=== PATIENT | female | born 1960 | race Caucasian/White ===

== ENCOUNTER 2017-07-24 15:05 | Emergency (ER) | payer MEDICARE, OTHER ==
[2017-07-24 15:47] VITALS: BP 146/66
--- NOTE | 2017-07-24 15:47 | UC ---
Back Pain HPI - HPI Summary HPI Summary: 57 YEAR OLD FEMALE PRESENTS WITH COMPLAINS LEFT HIP PAIN, NECK PAIN AND RIGHT ELBOW PAIN SECONDARY TO A FALL. - History of Current Complaint Chief Complaint: UCBackPain Stated Complaint: BACK COMPLAINT Time Seen by Provider: 07/24/17 15:46 Hx Obtained From: Patient Onset/Duration: Sudden Onset Timing: Constant Severity Initially: Moderate Severity Currently: Moderate Pain Scale Used: 0-10 Numeric - 5 Character: Sharp Aggravating: Movement Associated Signs And Symptoms: Positive: Negative - Allergies/Home Medications Allergies/Adverse Reactions: Allergies Allergy/AdvReac Type Severity Reaction Status Date / Time Penicillins Allergy Severe See Comment Verified 07/24/17 15:43 Yeast Allergy Mild Heartburn Verified 07/24/17 15:43 Home Medications: Home Medications Mirabegron (NF) [Myrbetriq (NF)] 50 mg PO DAILY 07/24/17 [History Confirmed ] Omeprazole CAP* [Prilosec CAP* 20 MG] 20 mg PO DAILY 07/24/17 [History Confirmed 07/24/17] PMH/Surg Hx/FS Hx/Imm Hx Previously Healthy: Yes - Surgical History Surgical History: Yes Surgery Procedure, Year, and Place: Left Knee Partial Replacement 2014. 2010 RT HIP REPLACEMENT. 2012 RT HIP REVISION. 1987 LT BUNIONECTOMY - Family History Known Family History: Positive: Diabetes - Social History Alcohol Use: Rare Substance Use Type: None Smoking Status (MU): Never Smoked Tobacco - Immunization History Most Recent Influenza Vaccination: none Review of Systems Constitutional: Negative Skin: Negative Eyes: Negative ENT: Negative Respiratory: Negative Cardiovascular: Negative Gastrointestinal: Negative Genitourinary: Negative Motor: Negative Neurovascular: Negative Musculoskeletal: Myalgia, Other: - NECK PAIN LEFT HIP PAIN RIGHT ELBOW PAIN Neurological: Negative Psychological: Negative All Other Systems Reviewed And Are Negative: Yes Physical Exam Triage Information Reviewed: Yes Vital Signs: Initial Vital Signs Temp 36.8 C 07/24/17 15:37 Pulse 66 07/24/17 15:37 Resp 16 07/24/17 15:37 BP 146/66 07/24/17 15:37 Pulse Ox 98 07/24/17 15:37 Vital Signs Reviewed: Yes Eye Exam: Normal ENT Exam: Normal Dental Exam: Normal Neck exam: Normal Neck: Positive: 1 Respiratory Exam: Normal Cardiovascular Exam: Normal Abdominal Exam: Normal Musculoskeletal: Positive: Other: - LEFT HIP PAIN NECK PAIN RIGHT HIP PAIN Neurological Exam: Normal Psychological Exam: Normal Skin Exam: Normal Back Pain Course/Dx - Differential Dx/Diagnosis Provider Diagnoses: LEFT HIP PAIN. NECK STRAIN. RIGHT ELBOW PAIN Discharge - Discharge Plan Condition: Stable Disposition: HOME Prescriptions: Meloxicam [Mobic] 7.5 mg PO BID #30 tab Methocarbamol TAB* [Robaxin 500 MG TAB*] 500 mg PO TID PRN #30 tab PRN Reason: Spasms - Back Patient Education Materials: Low Back Strain (ED), Cervical Sprain (ED), Hip Pain (ED) Referrals: Herberth Daniels MD [Medical Doctor] - Damian Rodriguez MD [Primary Care Provider] -
--- NOTE | 2017-07-24 16:33 | RAD ---
INDICATION: Neck pain. Fall. COMPARISON: Cervical spine 2015 TECHNIQUE: Routine five-view imaging was performed FINDINGS: Bones: There are no acute bony findings. There are moderate degenerative changes about C5-C6 and C6-C7 with endplate cirrhosis, marginal osteophyte formation, uncinate process spurring. Craniocervical junction: The odontoid and atlantodental interval are normal. Alignment: Normal Disc spaces: The disc spaces are well-maintained Soft tissues: The prevertebral soft tissues are normal. IMPRESSION: MINOR DEGENERATIVE CHANGES C5-C6 AND C6-C7. NO ACUTE FINDINGS.
--- NOTE | 2017-07-24 16:34 | RAD ---
INDICATION: Fall COMPARISON: None TECHNIQUE: 3 views of the coccyx and sacrum were obtained. FINDINGS: There is no acute bony change. There is sclerosis about both SI joints which may be related to sacroiliitis. There is facet arthropathy at L5-S1. The soft tissues are normal IMPRESSION: NO ACUTE BONY FINDINGS.
--- NOTE | 2017-07-24 16:35 | RAD ---
INDICATION: Left hip pain COMPARISON: Pelvis June 23, 2011 TECHNIQUE: An AP view of the pelvis and AP views of the hip in neutral and abducted position were obtained FINDINGS: Bones: There are no acute bony findings. Joint spaces: There is right hip arthroplasty. There is no evidence of hardware failure. The left hip joint space is preserved. SI joints/symphysis: There is sclerosis about both SI joints which may be secondary to sacroiliitis. The pubic symphysis is normal. Other: None IMPRESSION: NO ACUTE ABNORMALITIES ABOUT THE LEFT HIP. SUSPECT BILATERAL SACROILIITIS
== END 2017-07-24 16:55 | disposition home or self-care (01) ==
LOC: UCEAST 15:05
DX: M25.552 Pain in left hip (principal); M25.521 Pain in right elbow; S16.1XXA Strain of muscle, fascia and tendon at neck level, initial encounter; W19.XXXA Unspecified fall, initial encounter; Y93.9 Activity, unspecified; Y92.9 Unspecified place or not applicable; Z96.652 Presence of left artificial knee joint; Z96.641 Presence of right artificial hip joint; Z88.0 Allergy status to penicillin
CPT/HCPCS: 72050; 72220; 99212; G0463